=== PATIENT | female | born 1935 | race African-American/Black ===

== ENCOUNTER → 2016-06-09 | Outpatient (CLI) | payer OTHER ==
[~2016-06-09] MED LIST: AMLODIPINE BESYL5 MG PO; ASPIRIN ADULT L81 M1 PO; ASPIRIN81 M1 PO; BACTRIM DS 8001 TA1 PO; CARDIZEM CD300 MG PO; CIPROFLOXACIN500 MG PO; COREG12.5 MG PO; Carafate1 GM PO; DARVOCET N 1001 TAB PO; FLOVENT 110 M110 MCG INH; HYDR12.5C PO; HYDROXYCHLOROQ200 M1 PO; HYDROXYCHLOROQ200 MG PO; KEFLEX500 M1 PO; LIDEX0.05% T; MECLIZINE HCL12.5 MG PO; NALTREXONE50 MG PO; NORCO 5-325 TA1 EACH PO; NORTRIPTYLINE H10 MG PO; PANTOPRAZOLE SO40 MG PO; PERCOCET 325 MG1 TA5 PO; PRILOSEC20 MG PO; PROTONIX40 MG PO; TORADOL10 MG PO; ULTRAM50 MG PO; VIT B; ZANTAC150 MG PO; ZOFRAN ODT4 MG SL
== END | disposition home or self-care (01) ==
LOC: RAD 09:50
DX: N20.0 Calculus of kidney (principal); N21.1 Calculus in urethra

== ENCOUNTER → 2016-07-24 | Outpatient (CLI) | payer OTHER | END | disposition home or self-care (01) | LOC: RAD 11:50 | DX: N20.0 Calculus of kidney (principal); Z96.0 Presence of urogenital implants ==

== ENCOUNTER → 2016-12-01 | Outpatient (CLI) | payer OTHER | END | disposition home or self-care (01) | LOC: RAD 11:21 | DX: Z13.820 Encounter for screening for osteoporosis (principal); E55.9 Vitamin D deficiency, unspecified; R29.890 Loss of height; Z78.0 Asymptomatic menopausal state; Z90.710 Acquired absence of both cervix and uterus ==

== ENCOUNTER 2017-02-22 20:33 | Inpatient (IN) | payer OTHER ==
[~2017-02-22] VITALS: Ht 157.5 cm; Wt 114.8 kg
--- NOTE | ~2017-02-22 | CON ---
[place], [place] REPORT OF CONSULTATION NAME: MILY COLÓN [facility] #: [id number] UNIT #: [id number] ROOM: 406 DOCTOR: SANDRA MUÑIZ MD BIRTHDATE: [birth year] DOS: 02/27/2017 CONSULTATION REQUESTED BY: Hospitalist services. REASON FOR CONSULTATION: Assess the patient's symptoms of persistent shortness of breath. HISTORY OF PRESENT ILLNESS: This is an 81-year-old female patient with a past diagnosed history reported by the patient as COPD, presented to the hospital. The patient has been noted acutely ill for the past few days. The symptoms started in the past 3-4 days. She started with symptoms, nasal congestion with drainage in the throat and also developed progressive increased coughing as well as shortness of breath. The symptoms of body ache noted. The patient has been currently treated for acute exacerbation of COPD with corticosteroids, bronchodilators, and other medications and still reported symptoms of shortness of breath with exertion. She denies symptoms of chest pain, chest tightness at the present time. Denies symptoms of hemoptysis. REVIEW OF SYSTEMS: CONSTITUTIONAL: Fatigue and tiredness noted without symptoms of fever or chills. EYES: Denies any burning, redness, or tenderness. EARS, NOSE, THROAT SYMPTOMS: Denies sore throat, hoarseness, otalgia, postnasal drainage or epistaxis. CARDIOVASCULAR: Denies anginal pain, edema or pain of the lower extremity. GASTROINTESTINAL: Denies dysphagia, nausea, vomiting, diarrhea, abdominal pain, hematemesis, melena or hematochezia. SKIN: Denies any lesions or rashes. CENTRAL NERVOUS SYSTEM: Denied symptoms of diplopia, headache, syncopal episode, tingling sensation of the extremity. PAST MEDICAL HISTORY: 1. The patient was known with history of bronchial asthma, severity unknown. 2. History of macular degeneration. 3. Gastroesophageal reflux. 4. History of essential hypertension. 5. Morbid obesity, BMI of 43. PAST SURGICAL HISTORY: The patient was known with history of: 1. Appendectomy. 2. 3 times. 3. Cholecystectomy. 4. Hysterectomy. SOCIAL HISTORY: The patient is currently , has 2 children. Denies history of alcohol use or illicit drug use. Lifetime nonsmoker. Denies occupation related pulmonary exposure history. FAMILY HISTORY: The patient's father with the patient complication related to the alcoholic liver cirrhosis. The mother at age 8585 years old related [place], [place] REPORT OF CONSULTATION [facility] [id number] UNIT #: [id number] ROOM: [facility] DOCTOR: JATINDER TURK MDSANDRA BIRTHDATE: [birth year] to myocardial infarction. One other brother has been also known with history of lung cancer. HOME MEDICATIONS: The medication from were listed as use of amlodipine, Coreg, hydrochlorothiazide, and Carafate. DRUG ALLERGIES: 1. ____ causing angioedema. 2. PENICILLINS. 3. IODINE. PHYSICAL EXAMINATION: GENERAL: This is 81-year-old -[place] female, currently sitting on the bed without any acute distress in the history of present illness. The patient was not noted without any acute distress. VITAL SIGNS: Height recorded 5 feet 2 inches, weight of 253 pounds, BMI 43. Recorded as a normal temperature. The patient since admission 02/22/2017, respiratory rate 18-20, heart rate 72-64, blood pressure 123/54-130/53, pulse oxygen saturation on room air ranged between 95-98% saturation throughout the admission. HEENT: Head was atraumatic. Eyes: No icterus. NECK: Short and obese. Supple. CARDIOVASCULAR: S1, S2 audible. LUNGS: The patient noted moderate decreased breath sounds, mild to moderate expiratory wheezing noted in the lungs bilaterally. There were no crackles heard. ABDOMEN: Soft, obese without any tenderness. Bowel sounds present. EXTREMITIES: Chronic obesity without any edema. CENTRAL NERVOUS SYSTEM: Cranial nerves 2-12 intact. No focal deficit. MUSCULOSKELETAL: The patient does not show any acute deformities. SKIN: Visible skin showed no lesions or rashes. LABORATORY DATA: CBC 02/22/2017: Normal WBC count and platelet count, hemoglobin 11.3, hematocrit 34.4. Influenza A and B, nasal washing antigen negative on admission. CMP of 02/22/2017 on admission, BUN 19, creatinine 1.52, potassium 3.3. Remaining LFTs normal. PT/INR noted normal 02/23/2017. CBC this morning essentially noted identical to the admission. BMP today, BUN with normal creatinine was noted completely normal today. Glucose 188. Potassium noted decreased at 2.9. The blood culture from the showed no bacterial growth. Influenza A and B, nasal washing antigen on admission noted negative. Chest x-ray, 02/22/2017, the patient noted without any acute abnormalities. IMPRESSION: 1. The patient who has been currently admitted to the hospital noted with ongoing acute exacerbation of bronchial asthma with superimposed acute bronchitis with reduction of the respiratory symptom still noticed symptoms of shortness of breath and wheezing, persistent on examination. I cannot compare ____ wheezing improvement since admission; however, the patient does report reduction of respiratory symptom, but the resolution was described to be incomplete. [place], [place] REPORT OF CONSULTATION NAME: MILY COLÓN UNIT #: [id number] ROOM: 406 DOCTOR: JATINDER TURK MD,SANDRA BIRTHDATE: [birth year] 2. Morbid obesity. 3. Suspected diagnosis of obstructive sleep apnea disorder, current body habitus of the patient was also considered. 4. History of essential hypertension and other medical illnesses as reported. PLAN OF MANAGEMENT: I would not make any changes to the corticosteroids, resolution of the symptom. The patient has been noted gradually as improvement in the bronchial asthma, current dose of corticosteroids would be continued with continuation of bronchodilators. Monitor respiratory status closely. The patient does not seem to take any regular medications respiratory gudino for the long-term management of bronchial asthma will be started on Dulera 200/5 as 2 inhalations b.i.d. Monitor respiratory status closely. The patient will be ordered 6-minute walk test to assess the current shortness of breath severity as well as to assess for any oxygen desaturation. All other supportive therapy, plan of management to be continued. Usual care with additional treatment changes will be made based on the progression of the illness. Thanks for allowing me to participate in the care of this patient. SANDRA TOBIAS MD CM:CONSTR:REPORT OF CONSULTATION 1647 02/28/17 0159 interface
--- NOTE | ~2017-02-22 | PR ---
[place], [place] PROGRESS NOTE NAME: [facility]ILY [facility]N [facility]: [id number] UNIT #: [id number] ROOM: 406 DOCTOR: JATINDER TURK MD,SANDRA BIRTHDATE: [birth year] DOS: 03/01/2017 SUBJECTIVE: She has been showing gradual reduction of respiratory symptoms. Cough has been noted intermittently, but the intensity and frequency has been decreasing and not completely resolved. Shortness of breath occurred with exertion, but gradual reduction described. There were symptoms of chest pain or abdominal pain. OBJECTIVE: VITAL SIGNS: Normal temperature, respiratory rate 18, heart rate 66, blood pressure 124/79-142/77. The pulse oxygen saturation on room air was 100% saturation. HEENT: Shows moderate degree breath, occasional wheezing, no crackles. ABDOMEN: Soft, nontender. Bowel sounds present. EXTREMITIES: The patient was noted without any edema, clubbing or cyanosis. IMPRESSION: 1. The patient with gradual reduction of the respiratory symptom. The patient has been continued with current medical management, resolving acute bronchial asthma exacerbation slowly. 2. Chronic obesity, suspected diagnosis of sleep apnea disorder, clinically require further assessment. PLAN OF TREATMENT: The patient may be considered for home discharge today on oral medication as corticosteroids, tapering dose. The antibiotic use may not be further needed. Home oxygen assessment was also ordered, the patient prior to the discharge to assess the need for any oxygen use at home. SANDRA TOBIAS MD CM:PNTRANS [phone] SANDRA TURK MD 03/01/17 1657 interface
--- NOTE | ~2017-02-22 | PR ---
[place], [place] PROGRESS NOTE NAME: MILY COLÓN [facility] #: [id number] UNIT #: [id number] ROOM: 406 DOCTOR: JATINDER TURK MD,SANDRA BIRTHDATE: [birth year] DOS: 02/28/2017 SUBJECTIVE: The patient has been noted comfortable at this time with sitting on the bed. She does have a cough. The patient was noted [id number] without any sputum expectoration, has not been reported any symptoms of chest pain or hemodynamic instability. OBJECTIVE: VITAL SIGNS: Normal temperature, respiratory rate 20, heart rate of 65-67, blood pressure 132/47-131/54. The pulse oxygen saturation on room air 96% saturation. HEENT: No acute change. NECK: Supple. CARDIOVASCULAR: S1, S2 is audible. LUNGS: The patient noted moderate decreased breath sound without any crackles, mild expiratory wheezing bilaterally. ABDOMEN: Soft and obese. EXTREMITIES: With chronic obesity. LABORATORY DATA: BMP, BUN today 16, creatinine 1.25, potassium 3.2. IMPRESSION: 1. The patient with ongoing acute exacerbation of bronchial asthma and acute bronchitis, still noted with some ongoing symptoms of shortness of breath, cough and wheezing with gradual improvement. 2. Chronic obesity. 3. Suspected obstructive sleep apnea disorder. 4. Hyperglycemia secondary to corticosteroids. PLAN OF MANAGEMENT: Continuation of the current plan of care for the patient at this time as in progress. Monitor respiratory status closely. Continue other supportive plan of care and treatments. SANDRA TOBIAS MD CM:PNTRANS [id number] SANDRA TURK MD 02/28/17 1532 interface
--- NOTE | ~2017-02-22 | EKG ---
[place], [place] ELECTROCARDIOGRAM REPORT NAME: MILY COLÓN UNIT #: [id number] ROOM: [facility] DOCTOR: ESPERANZA CHILEL,CHING BIRTHDATE: [birth year] DOS: 02/22/2017 TIME: 2111. IMPRESSION: 1. Sinus rhythm. 2. Right bundle-branch block. 3. Nonspecific ST-T changes. 4. Baseline artifacts. CHING MATA MD CM:EKGRPT:ELECTROCARDIOGRAM REPORT [id number] 1521 CHING MATA MD
[2017-02-22 20:47] VITALS: BP 164/61
[2017-02-22 21:27] LABS: BASO % 0.4 % (0.0-1.0); EOS # 0.2 10*3/uL (0.0-0.4); EOS % 2.7 % (1.0-4.0); HEMATOCRIT 34.4 % (37.0-47.0); HEMOGLOBIN 11.3 g/dl (12.0-16.0); LYMPH # 1.7 10*3/uL (1.3-4.4); LYMPH % 23.9 % (27.0-41.0); MEAN CELL VOLUME 90.3 fl (81.0-99.0); MEAN CORPUSCULAR HGB 29.7 pg (27.0-31.0); MEAN CORPUSCULAR HGB CONC 32.8 g/dl (33.0-37.0); MEAN PLATELET VOLUME 10.4 fl (9.6-12.3); MONO # 1.1 10*3/uL (0.1-1.0); NEUT # 4.1 10*3/uL (2.3-7.9); NEUT % 57.9 % (47.0-73.0); PLATELET COUNT AUTOMATED 203 10*3/uL (130-400); RED BLOOD COUNT 3.81 10*6/uL (4.10-5.10); RED CELL DISTRI WIDTH 13.2 % (0-14.5); WHITE BLOOD COUNT 7.1 10*3/uL (4.8-10.8)
[2017-02-22 21:44] LABS: ALBUMIN 3.3 gm/dl (3.1-4.5); ALKALINE PHOSPHATASE 100 U/L (45-117); BUN 19 mg/dl (7-24); CHLORIDE 108 mmol/L (98-107); CREATININE 1.52 mg/dL (0.55-1.02); POTASSIUM 3.3 mmol/L (3.5-5.1); SGOT/AST 19 IU/L (3-35); SGPT/ALT 19 U/L (12-78); SODIUM 142 mmol/L (136-145); TOTAL PROTEIN 8.2 gm/dL (6.4-8.2)
[2017-02-22 21:52] LABS: TROPONIN I < 0.015 ng/ml (<0.045)
[2017-02-22 22:45] VITALS: BP 154/78
[2017-02-23] VITALS: BP 154/78
[2017-02-23 07:17] LABS: BASO % 0.2 % (0.0-1.0); HEMOGLOBIN 10.6 g/dl (12.0-16.0); LYMPH # 0.6 10*3/uL (1.3-4.4); LYMPH % 10.4 % (27.0-41.0); MEAN CELL VOLUME 90.4 fl (81.0-99.0); MEAN CORPUSCULAR HGB 29.9 pg (27.0-31.0); MEAN CORPUSCULAR HGB CONC 33.1 g/dl (33.0-37.0); MEAN PLATELET VOLUME 9.9 fl (9.6-12.3); MONO # 0.1 10*3/uL (0.1-1.0); MONO % 1.5 % (3.0-9.0); NEUT # 5.4 10*3/uL (2.3-7.9); NEUT % 87.6 % (47.0-73.0); PLATELET COUNT AUTOMATED 186 10*3/uL (130-400); RED BLOOD COUNT 3.54 10*6/uL (4.10-5.10); RED CELL DISTRI WIDTH 12.8 % (0-14.5); WHITE BLOOD COUNT 6.2 10*3/uL (4.8-10.8)
[2017-02-23 07:57] LABS: INTERNATIONAL NORM RATIO 1.1 (2.0-3.5)
[2017-02-23 08:00] VITALS: BP 172/76
[2017-02-23 08:56] LABS: ALBUMIN 2.9 gm/dl (3.1-4.5); CREATININE 1.29 mg/dL (0.55-1.02); FREE T4 0.94 ng/dl (0.76-1.46); PHOSPHOROUS 2.8 mg/dL (2.5-4.9); POTASSIUM 3.4 mmol/L (3.5-5.1); TOTAL PROTEIN 7.7 gm/dL (6.4-8.2)
[2017-02-23 09:01] LABS: THYROID STIM HORMONE (HS) 0.462 uIU/ml (0.358-4.75)
[2017-02-23 12:00] VITALS: BP 155/59
[2017-02-23 15:51] VITALS: BP 160/70
[2017-02-23 20:00] VITALS: BP 158/66
[2017-02-24] VITALS: BP 143/72
[2017-02-24 08:00] VITALS: BP 176/72
[2017-02-24 08:15] LABS: BASO % 0.1 % (0.0-1.0); HEMATOCRIT 32.8 % (37.0-47.0); HEMOGLOBIN 11.1 g/dl (12.0-16.0); LYMPH # 1.1 10*3/uL (1.3-4.4); LYMPH % 8.6 % (27.0-41.0); MEAN CELL VOLUME 88.6 fl (81.0-99.0); MEAN CORPUSCULAR HGB CONC 33.8 g/dl (33.0-37.0); MEAN PLATELET VOLUME 10.3 fl (9.6-12.3); MONO # 0.7 10*3/uL (0.1-1.0); MONO % 5.1 % (3.0-9.0); NEUT # 11.2 10*3/uL (2.3-7.9); NEUT % 85.7 % (47.0-73.0); PLATELET COUNT AUTOMATED 209 10*3/uL (130-400); RED CELL DISTRI WIDTH 12.9 % (0-14.5); WHITE BLOOD COUNT 13.1 10*3/uL (4.8-10.8)
[2017-02-24 08:36] LABS: CREATININE 1.25 mg/dL (0.55-1.02); PHOSPHOROUS 2.2 mg/dL (2.5-4.9); POTASSIUM 3.4 mmol/L (3.5-5.1)
[2017-02-24 12:00] VITALS: BP 151/68
[2017-02-24 16:00] VITALS: BP 158/61
[2017-02-24 20:00] VITALS: BP 123/48
[2017-02-25] VITALS: BP 140/56
[2017-02-25 06:26] LABS: BASO % 0.1 % (0.0-1.0); HEMOGLOBIN 10.9 g/dl (12.0-16.0); LYMPH # 1.1 10*3/uL (1.3-4.4); LYMPH % 8.8 % (27.0-41.0); MEAN CELL VOLUME 89.1 fl (81.0-99.0); MEAN CORPUSCULAR HGB 30.4 pg (27.0-31.0); MEAN CORPUSCULAR HGB CONC 34.1 g/dl (33.0-37.0); MEAN PLATELET VOLUME 10.1 fl (9.6-12.3); MONO # 0.4 10*3/uL (0.1-1.0); MONO % 3.4 % (3.0-9.0); NEUT # 10.8 10*3/uL (2.3-7.9); NEUT % 86.7 % (47.0-73.0); PLATELET COUNT AUTOMATED 195 10*3/uL (130-400); RED BLOOD COUNT 3.59 10*6/uL (4.10-5.10); WHITE BLOOD COUNT 12.4 10*3/uL (4.8-10.8)
[2017-02-25 07:16] LABS: BUN 15 mg/dl (7-24); CHLORIDE 109 mmol/L (98-107); CREATININE 1.04 mg/dL (0.55-1.02); PHOSPHOROUS 1.5 mg/dL (2.5-4.9); POTASSIUM 2.8 mmol/L (3.5-5.1); SODIUM 143 mmol/L (136-145)
[2017-02-25 08:00] VITALS: BP 150/58
[2017-02-25 12:00] VITALS: BP 138/60
[2017-02-25 16:00] VITALS: BP 145/58
[2017-02-25 20:00] VITALS: BP 130/52
[2017-02-26] VITALS: BP 148/65
[2017-02-26 06:02] LABS: BUN 15 mg/dl (7-24); CHLORIDE 108 mmol/L (98-107); CREATININE 1.01 mg/dL (0.55-1.02); PHOSPHOROUS 2.1 mg/dL (2.5-4.9); POTASSIUM 3.1 mmol/L (3.5-5.1); SODIUM 141 mmol/L (136-145)
[2017-02-26 08:00] VITALS: BP 130/54
[2017-02-26] MEDS ORDERED: VITAMIN D31000 UNI1 PO (09:48)
[2017-02-26 12:00] VITALS: BP 152/64
[2017-02-26 16:00] VITALS: BP 135/56
[2017-02-26 20:00] VITALS: BP 118/50
[2017-02-27] VITALS: BP 131/57
[2017-02-27 04:00] VITALS: BP 153/71
[2017-02-27 06:11] LABS: BASO % 0.1 % (0.0-1.0); HEMATOCRIT 32.4 % (37.0-47.0); HEMOGLOBIN 11.1 g/dl (12.0-16.0); LYMPH % 10.4 % (27.0-41.0); MEAN CELL VOLUME 86.9 fl (81.0-99.0); MEAN CORPUSCULAR HGB 29.8 pg (27.0-31.0); MEAN CORPUSCULAR HGB CONC 34.3 g/dl (33.0-37.0); MEAN PLATELET VOLUME 10.2 fl (9.6-12.3); MONO # 0.6 10*3/uL (0.1-1.0); MONO % 5.7 % (3.0-9.0); PLATELET COUNT AUTOMATED 202 10*3/uL (130-400); RED BLOOD COUNT 3.73 10*6/uL (4.10-5.10); RED CELL DISTRI WIDTH 12.7 % (0-14.5); WHITE BLOOD COUNT 9.8 10*3/uL (4.8-10.8)
[2017-02-27 06:25] LABS: BUN 14 mg/dl (7-24); CHLORIDE 102 mmol/L (98-107); CREATININE 1.02 mg/dL (0.55-1.02); POTASSIUM 2.9 mmol/L (3.5-5.1); SODIUM 140 mmol/L (136-145)
[2017-02-27 08:00] VITALS: BP 152/75
[2017-02-27 12:00] VITALS: BP 148/50
[2017-02-27 16:00] VITALS: BP 123/54
[2017-02-27 20:00] VITALS: BP 154/81
[2017-02-28] VITALS: BP 133/70
[2017-02-28 05:20] VITALS: BP 140/64
[2017-02-28 07:28] LABS: CREATININE 1.25 mg/dL (0.55-1.02); PHOSPHOROUS 2.7 mg/dL (2.5-4.9); POTASSIUM 3.2 mmol/L (3.5-5.1)
[2017-02-28 08:00] VITALS: BP 131/54
[2017-02-28 12:00] VITALS: BP 132/47
[2017-02-28 16:06] VITALS: BP 113/39
[2017-02-28 19:56] VITALS: BP 139/52
[2017-03-01] VITALS: BP 125/55
[2017-03-01 07:36] LABS: CREATININE 1.17 mg/dL (0.55-1.02)
[2017-03-01 08:09] VITALS: BP 142/77
[2017-03-01 11:51] VITALS: BP 124/79
[2017-03-01] MEDS ORDERED: PREDNISONE10 MG PO (12:15)
[2017-03-01] MEDS ORDERED: K-TAB20 MEQ PO (12:43)
== END 2017-03-01 14:17 | disposition home or self-care (01) | DRG 871 ==
LOC: ED 20:33 → 4E 21:58 → EDHOLD 21:58 → 4E 22:35
PROVIDERS: Family Medicine; Internal Medicine Nephrology; Student in an Organized Health Care Education/Training Program
DX: A41.9 Sepsis, unspecified organism (principal); J18.9 Pneumonia, unspecified organism; E11.22 Type 2 diabetes mellitus with diabetic chronic kidney disease; M32.9 Systemic lupus erythematosus, unspecified; E11.65 Type 2 diabetes mellitus with hyperglycemia; J44.0 Chronic obstructive pulmonary disease with (acute) lower respiratory infection; Z68.41 Body mass index [BMI] 40.0-44.9, adult; J44.1 Chronic obstructive pulmonary disease with (acute) exacerbation; J45.901 Unspecified asthma with (acute) exacerbation; D64.9 Anemia, unspecified; E66.01 Morbid (severe) obesity due to excess calories; N18.3 Chronic kidney disease, stage 3 (moderate); E87.6 Hypokalemia; I25.10 Atherosclerotic heart disease of native coronary artery without angina pectoris; J20.9 Acute bronchitis, unspecified; G47.33 Obstructive sleep apnea (adult) (pediatric); I12.9 Hypertensive chronic kidney disease with stage 1 through stage 4 chronic kidney disease, or unspecified chronic kidney disease; M54.9 Dorsalgia, unspecified; G89.29 Other chronic pain; Z53.29 Procedure and treatment not carried out because of patient's decision for other reasons; T38.0X5A Adverse effect of glucocorticoids and synthetic analogues, initial encounter; K21.9 Gastro-esophageal reflux disease without esophagitis; Z90.49 Acquired absence of other specified parts of digestive tract; Z98.891 History of uterine scar from previous surgery; Z90.710 Acquired absence of both cervix and uterus; Z80.1 Family history of malignant neoplasm of trachea, bronchus and lung; Z83.79 Family history of other diseases of the digestive system; Z82.49 Family history of ischemic heart disease and other diseases of the circulatory system; Z81.1 Family history of alcohol abuse and dependence; Z88.8 Allergy status to other drugs, medicaments and biological substances; Z88.0 Allergy status to penicillin; Z91.013 Allergy to seafood; Y92.89 Other specified places as the place of occurrence of the external cause; Z79.899 Other long term (current) drug therapy

== ENCOUNTER → 2017-07-06 | Outpatient (CLI) | payer OTHER ==
[~2017-07-06] MED LIST changes: +K-TAB20 MEQ PO; +PREDNISONE10 MG PO; +VITAMIN D31000 UNI1 PO
[2017-07-06 11:07] LABS: BASO % 0.4 % (0.0-1.0); EOS # 0.1 10*3/uL (0.0-0.4); EOS % 1.2 % (1.0-4.0); HEMATOCRIT 34.3 % (37.0-47.0); HEMOGLOBIN 10.9 g/dl (12.0-16.0); LYMPH % 21.7 % (27.0-41.0); MEAN CELL VOLUME 92.5 fl (81.0-99.0); MEAN CORPUSCULAR HGB 29.4 pg (27.0-31.0); MEAN CORPUSCULAR HGB CONC 31.8 g/dl (33.0-37.0); MEAN PLATELET VOLUME 9.5 fl (9.6-12.3); MONO # 0.8 10*3/uL (0.1-1.0); MONO % 8.8 % (3.0-9.0); NEUT # 6.2 10*3/uL (2.3-7.9); NEUT % 67.6 % (47.0-73.0); PLATELET COUNT AUTOMATED 241 10*3/uL (130-400); RED BLOOD COUNT 3.71 10*6/uL (4.10-5.10); RED CELL DISTRI WIDTH 12.8 % (0-14.5); WHITE BLOOD COUNT 9.2 10*3/uL (4.8-10.8)
[2017-07-06 11:35] LABS: ALBUMIN 3.4 gm/dl (3.1-4.5); CREATININE 1.26 mg/dL (0.55-1.02); POTASSIUM 3.5 mmol/L (3.5-5.1)
== END | disposition home or self-care (01) ==
LOC: LAB 10:29
PROVIDERS: Nurse Practitioner Family
DX: E78.4 Other hyperlipidemia (principal); I10 Essential (primary) hypertension

== ENCOUNTER → 2017-07-21 | Outpatient (CLI) | payer OTHER | END | disposition home or self-care (01) | LOC: LAB 13:40 | DX: I10 Essential (primary) hypertension (principal); R00.1 Bradycardia, unspecified ==

== ENCOUNTER 2017-09-23 01:31 | Emergency (ER) | payer OTHER ==
[~2017-09-23] VITALS: Ht 157.4 cm; Wt 100.7 kg
[2017-09-23 02:23] LABS: BASO % 0.4 % (0.0-1.0); EOS % 0.4 % (1.0-4.0); HEMATOCRIT 33.1 % (37.0-47.0); HEMOGLOBIN 10.9 g/dl (12.0-16.0); LYMPH # 1.3 10*3/uL (1.3-4.4); LYMPH % 12.6 % (27.0-41.0); MEAN CELL VOLUME 89.5 fl (81.0-99.0); MEAN CORPUSCULAR HGB 29.5 pg (27.0-31.0); MEAN CORPUSCULAR HGB CONC 32.9 g/dl (33.0-37.0); MEAN PLATELET VOLUME 9.8 fl (9.6-12.3); MONO # 0.6 10*3/uL (0.1-1.0); MONO % 5.8 % (3.0-9.0); NEUT # 8.4 10*3/uL (2.3-7.9); NEUT % 80.4 % (47.0-73.0); PLATELET COUNT AUTOMATED 250 10*3/uL (130-400); RED CELL DISTRI WIDTH 13.2 % (0-14.5); WHITE BLOOD COUNT 10.4 10*3/uL (4.8-10.8)
[2017-09-23 02:36] LABS: ALBUMIN 3.4 gm/dl (3.1-4.5); CREATININE 1.24 mg/dL (0.55-1.02)
[2017-09-23 03:38] LABS: BILIRUBIN NEGATIVE (NEGATIVE); BLOOD TRACE-INTACT (NEGATIVE); CLARITY CLEAR (CLEAR); COLOR YELLOW (YELLOW); GLUCOSE NEGATIVE (NEGATIVE); KETONE NEGATIVE (NEGATIVE); LEUKO ESTERASE 1+ (NEGATIVE); NITRITE NEGATIVE (NEGATIVE); SPECIFIC GRAVITY 1.025 (1.005-1.030); UROBILINOGEN 0.2 E.U./dl (0.2-1.0)
[2017-09-23 03:45] LABS: BACTERIA TRACE; EPITHELIAL CELLS 0-2
[2017-09-23 12:03] VITALS: BP 157/62
== END 2017-09-23 13:54 | disposition short-term general hospital (02) ==
LOC: ED 01:31
PROVIDERS: Emergency Medicine
DX: K56.609 Unspecified intestinal obstruction, unspecified as to partial versus complete obstruction (principal); K43.9 Ventral hernia without obstruction or gangrene; J45.909 Unspecified asthma, uncomplicated; J44.9 Chronic obstructive pulmonary disease, unspecified; I12.9 Hypertensive chronic kidney disease with stage 1 through stage 4 chronic kidney disease, or unspecified chronic kidney disease; E11.22 Type 2 diabetes mellitus with diabetic chronic kidney disease; N18.3 Chronic kidney disease, stage 3 (moderate); I25.10 Atherosclerotic heart disease of native coronary artery without angina pectoris; E66.01 Morbid (severe) obesity due to excess calories; Z88.8 Allergy status to other drugs, medicaments and biological substances; Z88.0 Allergy status to penicillin; Z91.013 Allergy to seafood; Z68.42 Body mass index [BMI] 45.0-49.9, adult

== ENCOUNTER → 2018-01-16 | Outpatient (CLI) | payer OTHER ==
[2018-01-16 13:30] LABS: BILIRUBIN NEGATIVE (NEGATIVE); BLOOD TRACE-INTACT (NEGATIVE); CLARITY CLOUDY (CLEAR); COLOR YELLOW (YELLOW); GLUCOSE NEGATIVE (NEGATIVE); KETONE NEGATIVE (NEGATIVE); LEUKO ESTERASE 1+ (NEGATIVE); NITRITE POSITIVE (NEGATIVE); PH 5.5 (5.0-9.0); SPECIFIC GRAVITY 1.025 (1.005-1.030); UROBILINOGEN 0.2 E.U./dl (0.2-1.0)
[2018-01-16 14:01] LABS: BACTERIA 3+; EPITHELIAL CELLS 20-30; WBC TNTC wbc/hpf (0-5)
== END | disposition home or self-care (01) ==
LOC: LAB 12:50
PROVIDERS: Nurse Practitioner Family
DX: R30.0 Dysuria (principal)

== ENCOUNTER → 2018-04-26 | Outpatient (CLI) | payer OTHER ==
[2018-04-26 10:27] LABS: BILIRUBIN NEGATIVE (NEGATIVE); BLOOD NEGATIVE (NEGATIVE); CLARITY CLOUDY (CLEAR); COLOR YELLOW (YELLOW); GLUCOSE NEGATIVE (NEGATIVE); KETONE TRACE (NEGATIVE); LEUKO ESTERASE TRACE (NEGATIVE); NITRITE NEGATIVE (NEGATIVE); PH 5.5 (5.0-9.0); SPECIFIC GRAVITY 1.025 (1.005-1.030); UROBILINOGEN 0.2 E.U./dl (0.2-1.0)
[2018-04-26 10:56] LABS: BACTERIA 2+; WBC 51-100 wbc/hpf (0-5)
== END | disposition home or self-care (01) ==
LOC: LAB 10:00
PROVIDERS: Nurse Practitioner Family
DX: R30.0 Dysuria (principal)

== ENCOUNTER 2018-06-16 11:39 | Emergency (ER) | payer OTHER ==
[~2018-06-16] VITALS: Ht 157.4 cm; Wt 96.2 kg
--- NOTE | ~2018-06-16 | EKG ---
[place], [place] ELECTROCARDIOGRAM REPORT NAME: MILY COLÓN UNIT #: [id number] ROOM: DOCTOR: EPIPHANY DRAFT REPORT BIRTHDATE: [birth year] [facility] Test Date: 2018-06-16 Test Time: 12:09:08 Pat Name: MILY COLÓN Department: Room: Gender: F Senior Director [employer]: : 1935 Requested By: CODI LOVING Order Number: [id number] Reading MD: Altaf Lanza MD Measurements Intervals [place] Rate: 50 P: 61 CA: 166 QRS: -76 QRSD: 148 T: 43 QT: 477 QTc: 435 Interpretive Statements Sinus rhythm RBBB and LAFB Electronically Signed On 06-19-2018 7:54:17 PDT by Altaf Lanza MD CM:EKGRPT:ELECTROCARDIOGRAM REPORT [id number] CODI LIU DRAFT REPORT CODI LOVING MD
[2018-06-16 11:40] VITALS: BP 151/147
[2018-06-16 12:33] LABS: BASO % 0.5 % (0.0-1.0); EOS # 0.1 10*3/uL (0.0-0.4); EOS % 1.2 % (1.0-4.0); HEMATOCRIT 33.8 % (37.0-47.0); HEMOGLOBIN 11.3 g/dl (12.0-16.0); LYMPH # 1.9 10*3/uL (1.3-4.4); MEAN CELL VOLUME 92.9 fl (81.0-99.0); MEAN CORPUSCULAR HGB CONC 33.4 g/dl (33.0-37.0); MEAN PLATELET VOLUME 10.1 fl (9.6-12.3); MONO # 0.8 10*3/uL (0.1-1.0); MONO % 9.1 % (3.0-9.0); NEUT # 5.4 10*3/uL (2.3-7.9); PLATELET COUNT AUTOMATED 233 10*3/uL (130-400); RED BLOOD COUNT 3.64 10*6/uL (4.10-5.10); RED CELL DISTRI WIDTH 13.4 % (0-14.5); WHITE BLOOD COUNT 8.3 10*3/uL (4.8-10.8)
[2018-06-16 12:41] LABS: ACT PARTIAL THROMBO TIME 27.8 SECONDS (20.8-31.5)
[2018-06-16 12:45] LABS: BUN 16 mg/dl (7-24); CHLORIDE 113 mmol/L (98-107); CREATININE 1.05 mg/dL (0.55-1.02); POTASSIUM 3.8 mmol/L (3.5-5.1); SODIUM 143 mmol/L (136-145)
== END 2018-06-16 14:05 | disposition home or self-care (01) ==
LOC: ED 11:39
PROVIDERS: Emergency Medicine
DX: S52.502A Unspecified fracture of the lower end of left radius, initial encounter for closed fracture (principal); S00.12XA Contusion of left eyelid and periocular area, initial encounter; R00.1 Bradycardia, unspecified; L98.9 Disorder of the skin and subcutaneous tissue, unspecified; E11.22 Type 2 diabetes mellitus with diabetic chronic kidney disease; I12.9 Hypertensive chronic kidney disease with stage 1 through stage 4 chronic kidney disease, or unspecified chronic kidney disease; N18.3 Chronic kidney disease, stage 3 (moderate); I25.10 Atherosclerotic heart disease of native coronary artery without angina pectoris; I25.2 Old myocardial infarction; E66.9 Obesity, unspecified; J45.909 Unspecified asthma, uncomplicated; G89.29 Other chronic pain; J44.9 Chronic obstructive pulmonary disease, unspecified; Z91.013 Allergy to seafood; Z91.041 Radiographic dye allergy status; Z88.0 Allergy status to penicillin; Z88.8 Allergy status to other drugs, medicaments and biological substances; Z79.899 Other long term (current) drug therapy; Z68.41 Body mass index [BMI] 40.0-44.9, adult; Z90.49 Acquired absence of other specified parts of digestive tract; Z90.710 Acquired absence of both cervix and uterus; W01.0XXA Fall on same level from slipping, tripping and stumbling without subsequent striking against object, initial encounter; Y93.01 Activity, walking, marching and hiking; Y92.89 Other specified places as the place of occurrence of the external cause; Y99.8 Other external cause status

== ENCOUNTER → 2018-06-23 | Outpatient (CLI) | payer OTHER | END | disposition home or self-care (01) | LOC: ORTHO 00:35 | DX: S62.102A Fracture of unspecified carpal bone, left wrist, initial encounter for closed fracture (principal); X58.XXXA Exposure to other specified factors, initial encounter; Y93.89 Activity, other specified; Y92.89 Other specified places as the place of occurrence of the external cause; Y99.8 Other external cause status ==

== ENCOUNTER → 2018-11-28 | Outpatient (CLI) | payer OTHER ==
[2018-11-28 11:47] LABS: BILIRUBIN NEGATIVE (NEGATIVE); BLOOD NEGATIVE (NEGATIVE); CLARITY CLEAR (CLEAR); COLOR YELLOW (YELLOW); GLUCOSE NEGATIVE (NEGATIVE); KETONE NEGATIVE (NEGATIVE); LEUKO ESTERASE NEGATIVE (NEGATIVE); NITRITE NEGATIVE (NEGATIVE); PH 5.5 (5.0-9.0); UROBILINOGEN 0.2 E.U./dl (0.2-1.0)
[2018-11-28 11:50] LABS: BASO % 0.4 % (0.0-1.0); EOS # 0.1 10*3/uL (0.0-0.4); EOS % 1.2 % (1.0-4.0); HEMATOCRIT 34.1 % (37.0-47.0); HEMOGLOBIN 10.9 g/dl (12.0-16.0); LYMPH % 25.6 % (27.0-41.0); MEAN CELL VOLUME 93.4 fl (81.0-99.0); MEAN CORPUSCULAR HGB 29.9 pg (27.0-31.0); MEAN PLATELET VOLUME 10.4 fl (9.6-12.3); MONO # 0.8 10*3/uL (0.1-1.0); MONO % 10.5 % (3.0-9.0); NEUT # 4.8 10*3/uL (2.3-7.9); NEUT % 62.2 % (47.0-73.0); PLATELET COUNT AUTOMATED 218 10*3/uL (130-400); RED BLOOD COUNT 3.65 10*6/uL (4.10-5.10); RED CELL DISTRI WIDTH 13.2 % (0-14.5); WHITE BLOOD COUNT 7.6 10*3/uL (4.8-10.8)
[2018-11-28 11:59] LABS: BACTERIA TRACE
[2018-11-28 12:02] LABS: URINE CREATININE RANDOM 99.1 mg/dL
[2018-11-28 12:19] LABS: ALBUMIN 3.4 gm/dl (3.1-4.5); CREATININE 1.25 mg/dL (0.55-1.02); PHOSPHOROUS 3.5 mg/dL (2.5-4.9); POTASSIUM 3.7 mmol/L (3.5-5.1)
[2018-11-28 12:40] LABS: VITAMIN D, 25-HYDROXY 27.8 ng/mL (30-100)
[2018-11-28 12:41] LABS: FERRITIN 124.2 ng/mL (10.0-291.0); PTH INTACT 33.2 pg/mL (18.5-88.0)
== END | disposition home or self-care (01) ==
LOC: LAB 11:10
PROVIDERS: Internal Medicine Nephrology
DX: I12.9 Hypertensive chronic kidney disease with stage 1 through stage 4 chronic kidney disease, or unspecified chronic kidney disease (principal); N18.3 Chronic kidney disease, stage 3 (moderate); D63.1 Anemia in chronic kidney disease; N25.81 Secondary hyperparathyroidism of renal origin; Z79.899 Other long term (current) drug therapy

== ENCOUNTER 2019-01-18 14:17 | Inpatient (IN) | payer OTHER ==
[~2019-01-18] VITALS: Ht 157.4 cm; Wt 93.2 kg
[2019-01-18 14:18] VITALS: BP 151/54
[2019-01-18 14:44] LABS: BASO % 0.4 % (0.0-1.0); EOS # 0.1 10*3/uL (0.0-0.4); EOS % 1.2 % (1.0-4.0); HEMATOCRIT 33.2 % (37.0-47.0); HEMOGLOBIN 10.9 g/dl (12.0-16.0); LYMPH # 2.5 10*3/uL (1.3-4.4); MEAN CELL VOLUME 93.5 fl (81.0-99.0); MEAN CORPUSCULAR HGB 30.7 pg (27.0-31.0); MEAN CORPUSCULAR HGB CONC 32.8 g/dl (33.0-37.0); MEAN PLATELET VOLUME 9.9 fl (9.6-12.3); MONO # 0.8 10*3/uL (0.1-1.0); MONO % 9.7 % (3.0-9.0); NEUT # 4.9 10*3/uL (2.3-7.9); NEUT % 58.5 % (47.0-73.0); PLATELET COUNT AUTOMATED 205 10*3/uL (130-400); RED BLOOD COUNT 3.55 10*6/uL (4.10-5.10); RED CELL DISTRI WIDTH 12.5 % (0-14.5); WHITE BLOOD COUNT 8.4 10*3/uL (4.8-10.8)
[2019-01-18 15:04] LABS: ALKALINE PHOSPHATASE 57 U/L (45-117); BUN 17 mg/dl (7-24); CHLORIDE 111 mmol/L (98-107); CREATININE 1.12 mg/dL (0.55-1.02); POTASSIUM 3.3 mmol/L (3.5-5.1); SGOT/AST 17 IU/L (3-35); SGPT/ALT 16 U/L (12-78); SODIUM 142 mmol/L (136-145); TOTAL PROTEIN 7.1 gm/dL (6.4-8.2)
[2019-01-18 15:06] LABS: TROPONIN I < 0.015 ng/ml (<0.045)
[2019-01-18 15:11] LABS: ACT PARTIAL THROMBO TIME 29.7 SECONDS (20.0-32.1)
[2019-01-18 15:35] VITALS: BP 124/53
[2019-01-18 15:59] VITALS: BP 117/52
--- NOTE | 2019-01-18 16:00 | NUR ---
PT HR REMAINS IN THE 40'S. PT REPORTS SLIGHT DIZZINESS AT TIMES.
--- NOTE | 2019-01-18 16:35 | NUR ---
PT UP TO THE BATHROOM WITH EMERGENCY MANAGEMENT DIRECTOR, STATES SHE WAS DIZZY WITH ACTIVIY. PT WAS ABLE AMBULATE WITH 1 ASSIST.
[2019-01-18 17:30] VITALS: BP 118/62
[2019-01-18 18:13] VITALS: BP 113/65
[2019-01-18] MEDS ORDERED: LIPITOR10 MG PO (18:32)
[2019-01-18] MEDS ORDERED: CENTRUM SILVER1 EAC1 PO (18:33)
[2019-01-18] MEDS ORDERED: VITAMIN B1250 MCG PO (18:34)
--- NOTE | 2019-01-18 19:02 | NUR ---
ANSWERING SERVICE WAS NOTIFIED OF DR. MANTILLA CONSULT. RESPONSE OF NOTIFICATION WAS SPOKE WITH DARREN STATES SHE WILL CALL THE PHYSICAN. JULES BLANCO
--- NOTE | 2019-01-18 19:07 | NUR ---
Spoke with Dr. Lanza states to decreased pt home dose of coreg from 12.5 mg bid to 3.125 mg bid. States to order echo if not done in last 6 months.
[2019-01-18 20:00] VITALS: BP 126/52
--- NOTE | 2019-01-18 20:09 | NUR ---
NOTIFIED RESIDENT THAT PATIENTS MED REC IS UP TO DATE
--- NOTE | 2019-01-18 23:36 | NUR ---
TYLENOL GIVEN FOR C/O HEADACHE RATED 9/10. CALL LIGHT WITHIN REAACH. SIDE RAILS X2.
[2019-01-19] VITALS: BP 121/35
[2019-01-19 00:25] LABS: BILIRUBIN NEGATIVE (NEGATIVE); BLOOD NEGATIVE (NEGATIVE); CLARITY CLEAR (CLEAR); COLOR YELLOW (YELLOW); GLUCOSE NEGATIVE (NEGATIVE); KETONE NEGATIVE (NEGATIVE); LEUKO ESTERASE NEGATIVE (NEGATIVE); NITRITE NEGATIVE (NEGATIVE); PH 5.5 (5.0-9.0); SPECIFIC GRAVITY 1.015 (1.005-1.030); UROBILINOGEN 0.2 E.U./dl (0.2-1.0)
[2019-01-19 00:35] LABS: BACTERIA TRACE; RBC 0-2 rbc/hpf (0-2)
--- NOTE | 2019-01-19 04:13 | NUR ---
PATIENT HR GERBER DOWN TO 38. DR NOTIFIED/STRIP ON CHART
[2019-01-19 08:00] VITALS: BP 122/44
--- NOTE | 2019-01-19 08:48 | NUR ---
PATIENT COMFORTABLE, APPEARS TO HAVE NO DISCOMFORT AT THIS TIME VÍCTOR BROWN.[facility]
--- NOTE | 2019-01-19 09:00 | NUR ---
Philosophy Instructor in to talk to patient. Patient states lives at home with alone. There are no steps in the home. Physician: abby juarez [facility]acy: [facility] Home health services: none Patient's level of ADLs: INDEPENDENT Patient has working utilities: all working DME: cane Follow-up physician's appointment after d/c: will be made by hospitalist nurse director upon discharge Does patient want to access PORTAL?: no Discharge plan discussed with patient, she states she lives at lone in an apartment and is independent in adls and ambulation she states her sister and her daughter live in the same building, she is her sisters caregiver twice a day, she states she will return home when medically stable. discussed with her VNA and she declines any home needs, case management will follow. MELISSA HOGUE
[2019-01-19 09:01] LABS: CREATININE 1.26 mg/dL (0.55-1.02); POTASSIUM 4.1 mmol/L (3.5-5.1)
[2019-01-19 09:06] LABS: PHOSPHOROUS 3.6 mg/dL (2.5-4.9)
[2019-01-19 09:11] LABS: THYROID STIM HORMONE (HS) 1.33 uIU/ml (0.358-4.75)
--- NOTE | 2019-01-19 10:00 | NUR ---
PATIENT LAYING COMFORTABLE IN BED WATCHING TV, NO COMPLAINTS OF CHEST PAIN AT THIS TIME VÍCTOR ECHEVARRIAN.[facility]
--- NOTE | 2019-01-19 10:10 | NUR ---
DR MANTILLA ROUNDED AND ASSESSED PT. HE SPOKE TO DR CARCAMO AT THIS TIME REGARDING PLAN OF CARE.
--- NOTE | 2019-01-19 11:26 | NUR ---
TYLENOL 650 MG GIVEN FOR C/O H/A,04/09.
[2019-01-19 12:00] VITALS: BP 130/72; BP 132/48
--- NOTE | 2019-01-19 12:00 | NUR ---
PATIENT IS RESTING COMFORTABLY S.GUY SPN.RCC
--- NOTE | 2019-01-19 12:30 | NUR ---
SPOKE TO CAROL LARA BESIDE AND UPDATED HER ON PLAN ORF CARE.
--- NOTE | 2019-01-19 13:30 | NUR ---
PTS LAYING IN BED WATCHING TV, APPEARS COMFORTABLE AT THIS TIME WILL GIVE REPORT TO YARIEL BROWN.[facility]
[2019-01-19 16:00] VITALS: BP 111/59
--- NOTE | 2019-01-19 17:06 | NUR ---
PT AMBULATING HALLWAYS.DENIES SOB.DENIES DIZZINESS. HR 68. DAUGHTER WITH PT. AT THIS TIME. VOICES NO NEEDS.STABLE.WILL CONTINUE TO MONITOR.
[2019-01-19 20:00] VITALS: BP 138/53
[2019-01-20] VITALS: BP 117/42
[2019-01-20 06:32] LABS: BASO % 0.4 % (0.0-1.0); EOS # 0.1 10*3/uL (0.0-0.4); EOS % 1.6 % (1.0-4.0); HEMATOCRIT 32.3 % (37.0-47.0); HEMOGLOBIN 10.4 g/dl (12.0-16.0); LYMPH # 2.5 10*3/uL (1.3-4.4); MEAN CELL VOLUME 93.9 fl (81.0-99.0); MEAN CORPUSCULAR HGB 30.2 pg (27.0-31.0); MEAN CORPUSCULAR HGB CONC 32.2 g/dl (33.0-37.0); MEAN PLATELET VOLUME 10.5 fl (9.6-12.3); MONO # 0.8 10*3/uL (0.1-1.0); MONO % 11.8 % (3.0-9.0); NEUT # 3.6 10*3/uL (2.3-7.9); NEUT % 51.1 % (47.0-73.0); PLATELET COUNT AUTOMATED 205 10*3/uL (130-400); RED BLOOD COUNT 3.44 10*6/uL (4.10-5.10); RED CELL DISTRI WIDTH 12.5 % (0-14.5)
[2019-01-20 06:59] LABS: CREATININE 1.16 mg/dL (0.55-1.02); POTASSIUM 3.6 mmol/L (3.5-5.1)
[2019-01-20 08:00] VITALS: BP 129/71
[2019-01-20 12:00] VITALS: BP 118/41
--- NOTE | 2019-01-20 14:19 | NUR ---
PATIENT DISCHARGE TO HOME.
== END 2019-01-20 15:16 | disposition home or self-care (01) | DRG 309 ==
LOC: ED 14:17 → EDHOLD 16:44 → 4E 16:44
PROVIDERS: Internal Medicine; Nurse Practitioner Family; ADMIT Internal Medicine
DX: R00.1 Bradycardia, unspecified (principal); E44.0 Moderate protein-calorie malnutrition; E66.01 Morbid (severe) obesity due to excess calories; J45.909 Unspecified asthma, uncomplicated; I25.10 Atherosclerotic heart disease of native coronary artery without angina pectoris; G89.29 Other chronic pain; N18.3 Chronic kidney disease, stage 3 (moderate); J44.9 Chronic obstructive pulmonary disease, unspecified; M32.9 Systemic lupus erythematosus, unspecified; M54.9 Dorsalgia, unspecified; E11.22 Type 2 diabetes mellitus with diabetic chronic kidney disease; I12.9 Hypertensive chronic kidney disease with stage 1 through stage 4 chronic kidney disease, or unspecified chronic kidney disease; D64.9 Anemia, unspecified; E87.6 Hypokalemia; E87.8 Other disorders of electrolyte and fluid balance, not elsewhere classified; I25.2 Old myocardial infarction; Z87.01 Personal history of pneumonia (recurrent); Z90.49 Acquired absence of other specified parts of digestive tract; Z88.0 Allergy status to penicillin; Z88.8 Allergy status to other drugs, medicaments and biological substances; Z91.041 Radiographic dye allergy status; Z91.013 Allergy to seafood; Z79.899 Other long term (current) drug therapy; Z90.710 Acquired absence of both cervix and uterus; Z98.891 History of uterine scar from previous surgery; Z82.49 Family history of ischemic heart disease and other diseases of the circulatory system; Z80.1 Family history of malignant neoplasm of trachea, bronchus and lung; Z81.1 Family history of alcohol abuse and dependence; Z83.79 Family history of other diseases of the digestive system; Z68.37 Body mass index [BMI] 37.0-37.9, adult

== ENCOUNTER → 2019-02-06 | Outpatient (CLI) | payer OTHER ==
[~2019-02-06] MED LIST changes: +CENTRUM SILVER1 EAC1 PO; +LIPITOR10 MG PO; +VITAMIN B1250 MCG PO
--- NOTE | 2019-02-06 07:44 | NUR ---
INFORMED CONSENT SIGNED FOR LEXISCAN STRESS TEST WITH DR. MANTILLA. RESTING EKG SINUS BRADYCARDIA WITH RBBB, HR 49, 152/70. PULSE OX 100% AND LUNGS CLEAR BILATERALLY. COMPLETED ONE MINUTE OF LEXISCAN PROTOCOL RECEIVING LEXISCAN 0.4MG OVER 10 SECONDS. OCCASIONAL PVC NOTED WITH NO ST CHANGES. PT C/O WEIRD FEELING. LAST RECOVERY HR 77, BP 130/52. WAITING NUCLEAR SCANNING IN STABLE CONDITION.
== END | disposition home or self-care (01) ==
LOC: CARD 00:34
DX: I20.9 Angina pectoris, unspecified (principal)

== ENCOUNTER → 2019-09-19 | Outpatient (CLI) | payer MEDICARE | END | disposition home or self-care (01) | LOC: COVID19 02:57 | DX: J44.9 Chronic obstructive pulmonary disease, unspecified (principal); Z20.828 Contact with and (suspected) exposure to other viral communicable diseases ==

== ENCOUNTER → 2019-12-26 | Outpatient (CLI) | payer OTHER ==
[2019-12-26 14:41] LABS: BASO % 0.4 % (0.0-1.0); EOS # 0.1 10*3/uL (0.0-0.4); EOS % 0.7 % (1.0-4.0); HEMATOCRIT 39.9 % (37.0-47.0); LYMPH % 30.1 % (27.0-41.0); MEAN CELL VOLUME 93.4 fl (81.0-99.0); MEAN CORPUSCULAR HGB 29.3 pg (27.0-31.0); MEAN CORPUSCULAR HGB CONC 31.3 g/dl (33.0-37.0); MEAN PLATELET VOLUME 10.1 fl (9.6-12.3); MONO # 0.8 10*3/uL (0.1-1.0); MONO % 7.9 % (3.0-9.0); NEUT % 60.7 % (47.0-73.0); PLATELET COUNT AUTOMATED 240 10*3/uL (130-400); RED BLOOD COUNT 4.27 10*6/uL (4.10-5.10); RED CELL DISTRI WIDTH 12.5 % (0-14.5); WHITE BLOOD COUNT 9.8 10*3/uL (4.8-10.8)
[2019-12-26 14:43] LABS: BILIRUBIN Negative (Negative); BLOOD Negative (Negative); CLARITY Clear (Clear); COLOR Yellow (Yellow); GLUCOSE Negative (Negative); KETONE Negative (Negative); LEUKO ESTERASE 2+ (Negative); NITRITE Negative (Negative); UROBILINOGEN 0.2 E.U./dl (0.0-1.0)
[2019-12-26 15:09] LABS: ALBUMIN 3.6 gm/dl (3.1-4.5); CREATININE 1.5 mg/dL (0.55-1.02); POTASSIUM 3.3 mmol/L (3.5-5.1)
[2019-12-26 15:30] LABS: BACTERIA 1+; WBC 21-30 wbc/hpf (0-5)
[2019-12-26 16:19] LABS: FERRITIN 69.3 ng/mL (10.0-291.0); VITAMIN D, 25-HYDROXY 35.1 ng/mL (30-100)
== END | disposition home or self-care (01) ==
LOC: LAB 14:12
PROVIDERS: ATTEND Internal Medicine Nephrology
DX: N18.30 Chronic kidney disease, stage 3 unspecified (principal); N25.81 Secondary hyperparathyroidism of renal origin; D63.1 Anemia in chronic kidney disease

== ENCOUNTER → 2020-04-08 | Outpatient (CLI) | payer OTHER ==
[2020-04-08 10:45] LABS: BASO % 0.5 % (0.0-1.0); EOS # 0.1 10*3/uL (0.0-0.4); EOS % 0.9 % (1.0-4.0); HEMATOCRIT 37.2 % (37.0-47.0); LYMPH # 1.8 10*3/uL (1.3-4.4); LYMPH % 22.8 % (27.0-41.0); MEAN CELL VOLUME 92.5 fl (81.0-99.0); MEAN CORPUSCULAR HGB 29.9 pg (27.0-31.0); MEAN CORPUSCULAR HGB CONC 32.3 g/dl (33.0-37.0); MEAN PLATELET VOLUME 10.1 fl (9.6-12.3); MONO # 0.7 10*3/uL (0.1-1.0); MONO % 8.8 % (3.0-9.0); NEUT # 5.3 10*3/uL (2.3-7.9); NEUT % 66.6 % (47.0-73.0); PLATELET COUNT AUTOMATED 254 10*3/uL (130-400); RED BLOOD COUNT 4.02 10*6/uL (4.10-5.10)
[2020-04-08 11:19] LABS: ALBUMIN 3.4 gm/dl (3.1-4.5); CREATININE 1.38 mg/dL (0.55-1.02); POTASSIUM 3.4 mmol/L (3.5-5.1)
[2020-04-08 11:26] LABS: THYROID STIM HORMONE (HS) 1.59 uIU/ml (0.358-4.75)
== END | disposition home or self-care (01) ==
LOC: LAB 10:21
PROVIDERS: ATTEND Nurse Practitioner Family
DX: I10 Essential (primary) hypertension (principal); E78.2 Mixed hyperlipidemia; E55.9 Vitamin D deficiency, unspecified; R94.4 Abnormal results of kidney function studies

== ENCOUNTER → 2020-04-29 | Outpatient (CLI) | payer OTHER ==
[2020-04-29 10:58] LABS: CREATININE 1.52 mg/dL (0.55-1.02); POTASSIUM 4.2 mmol/L (3.5-5.1)
== END | disposition home or self-care (01) ==
LOC: LAB 09:56
PROVIDERS: ATTEND Nurse Practitioner Family
DX: I10 Essential (primary) hypertension (principal)

== ENCOUNTER 2020-05-12 10:12 | Observation (INO) | payer OTHER ==
[~2020-05-12] VITALS: Ht 157.4 cm; Wt 109.8 kg
[2020-05-12 10:24] VITALS: BP 221/96
[2020-05-12 10:43] LABS: BASO % 0.4 % (0.0-1.0); EOS # 0.1 10*3/uL (0.0-0.4); EOS % 1.1 % (1.0-4.0); HEMATOCRIT 35.4 % (37.0-47.0); LYMPH # 1.9 10*3/uL (1.3-4.4); MEAN CELL VOLUME 93.2 fl (81.0-99.0); MEAN CORPUSCULAR HGB 30.3 pg (27.0-31.0); MEAN CORPUSCULAR HGB CONC 32.5 g/dl (33.0-37.0); MEAN PLATELET VOLUME 9.9 fl (9.6-12.3); MONO # 0.8 10*3/uL (0.1-1.0); MONO % 9.3 % (3.0-9.0); NEUT # 5.2 10*3/uL (2.3-7.9); PLATELET COUNT AUTOMATED 223 10*3/uL (130-400); RED CELL DISTRI WIDTH 13.1 % (0-14.5)
[2020-05-12 10:54] LABS: ACT PARTIAL THROMBO TIME 29.8 SECONDS (20.0-32.1)
[2020-05-12 10:59] LABS: ALBUMIN 3.2 gm/dl (3.1-4.5); ALKALINE PHOSPHATASE 79 U/L (45-117); BUN 20 mg/dl (7-24); CHLORIDE 114 mmol/L (98-107); CREATININE 1.22 mg/dL (0.55-1.02); POTASSIUM 3.9 mmol/L (3.5-5.1); SGOT/AST 13 IU/L (3-35); SGPT/ALT 17 U/L (12-78); SODIUM 144 mmol/L (136-145); TOTAL PROTEIN 7.9 gm/dL (6.4-8.2)
[2020-05-12 11:00] VITALS: BP 184/98
[2020-05-12 11:00] LABS: LIPASE 99 U/L (73-393)
[2020-05-12 11:08] LABS: TROPONIN I < 0.015 ng/ml (<0.045)
[2020-05-12 12:06] LABS: BILIRUBIN Negative (Negative); BLOOD Negative (Negative); CLARITY Clear (Clear); COLOR Yellow (Yellow); GLUCOSE Negative (Negative); KETONE Negative (Negative); NITRITE Negative (Negative); SPECIFIC GRAVITY 1.015 (1.001-1.030); UROBILINOGEN 0.2 E.U./dl (0.0-1.0)
[2020-05-12 12:19] LABS: LEUKO ESTERASE Negative (Negative)
[2020-05-12 12:22] LABS: BACTERIA TRACE
[2020-05-12 15:14] VITALS: BP 182/53
[2020-05-12 20:00] VITALS: BP 153/61
[2020-05-13] VITALS (7 sets, daily range): BP systolic 134–178; BP diastolic 56–103
[2020-05-13 06:22] LABS: BASO % 0.4 % (0.0-1.0); EOS # 0.2 10*3/uL (0.0-0.4); EOS % 1.9 % (1.0-4.0); HEMATOCRIT 38.2 % (37.0-47.0); LYMPH # 2.8 10*3/uL (1.3-4.4); LYMPH % 30.5 % (27.0-41.0); MEAN CELL VOLUME 93.4 fl (81.0-99.0); MEAN CORPUSCULAR HGB 29.6 pg (27.0-31.0); MEAN CORPUSCULAR HGB CONC 31.7 g/dl (33.0-37.0); MEAN PLATELET VOLUME 10.2 fl (9.6-12.3); MONO # 0.8 10*3/uL (0.1-1.0); MONO % 8.2 % (3.0-9.0); NEUT # 5.4 10*3/uL (2.3-7.9); NEUT % 58.8 % (47.0-73.0); PLATELET COUNT AUTOMATED 246 10*3/uL (130-400); RED BLOOD COUNT 4.09 10*6/uL (4.10-5.10); RED CELL DISTRI WIDTH 12.8 % (0-14.5); WHITE BLOOD COUNT 9.3 10*3/uL (4.8-10.8)
[2020-05-13 06:36] LABS: ALBUMIN 3.3 gm/dl (3.1-4.5); CREATININE 1.28 mg/dL (0.55-1.02); POTASSIUM 3.8 mmol/L (3.5-5.1); TOTAL PROTEIN 8.3 gm/dL (6.4-8.2)
[2020-05-13 07:27] LABS: VITAMIN D, 25-HYDROXY 35.6 ng/mL (30-100)
[2020-05-14] VITALS: BP 178/80
[2020-05-14 02:00] VITALS: BP 164/82
[2020-05-14 07:49] VITALS: BP 170/86
[2020-05-14] MEDS ORDERED: AMLODIPINE BESYL5 MG PO (08:31)
== END 2020-05-14 11:40 | disposition home or self-care (01) ==
LOC: ED 10:12 → EDHOLD 12:28 → 5E 13:20
PROVIDERS: Emergency Medicine; Registered Nurse; ADMIT Internal Medicine; ATTEND Internal Medicine
DX: I16.1 Hypertensive emergency (principal); R07.2 Precordial pain; I12.9 Hypertensive chronic kidney disease with stage 1 through stage 4 chronic kidney disease, or unspecified chronic kidney disease; N18.30 Chronic kidney disease, stage 3 unspecified; R06.00 Dyspnea, unspecified; E44.0 Moderate protein-calorie malnutrition; E87.8 Other disorders of electrolyte and fluid balance, not elsewhere classified; I25.10 Atherosclerotic heart disease of native coronary artery without angina pectoris; E66.01 Morbid (severe) obesity due to excess calories; Z68.41 Body mass index [BMI] 40.0-44.9, adult; J45.909 Unspecified asthma, uncomplicated; E87.6 Hypokalemia; M54.9 Dorsalgia, unspecified; G89.29 Other chronic pain; Z90.49 Acquired absence of other specified parts of digestive tract; Z90.710 Acquired absence of both cervix and uterus; Z88.0 Allergy status to penicillin; Z91.013 Allergy to seafood; Z91.09 Other allergy status, other than to drugs and biological substances

== ENCOUNTER → 2020-10-13 | Outpatient (CLI) | payer OTHER ==
[2020-10-13 11:52] LABS: ALBUMIN 3.4 gm/dl (3.1-4.5); CREATININE 1.29 mg/dL (0.55-1.02); POTASSIUM 3.5 mmol/L (3.5-5.1); TOTAL PROTEIN 8.1 gm/dL (6.4-8.2)
== END | disposition home or self-care (01) ==
LOC: LAB 10:57
PROVIDERS: ATTEND Nurse Practitioner Family
DX: I10 Essential (primary) hypertension (principal); E78.2 Mixed hyperlipidemia

== ENCOUNTER → 2021-01-13 | Outpatient (CLI) | payer OTHER ==
[2021-01-13 09:40] LABS: CREATININE 1.39 mg/dL (0.55-1.02)
== END | disposition home or self-care (01) ==
LOC: LAB 09:05 → CT 10:00
PROVIDERS: ATTEND Surgery
DX: K42.9 Umbilical hernia without obstruction or gangrene (principal); N20.0 Calculus of kidney; K57.30 Diverticulosis of large intestine without perforation or abscess without bleeding; K76.0 Fatty (change of) liver, not elsewhere classified; N28.89 Other specified disorders of kidney and ureter

== ENCOUNTER → 2021-02-02 | Outpatient (CLI) | payer OTHER ==
[2021-02-02 10:49] LABS: IRON 71 ug/dL (50-170); TOTAL IRON BINDING CAPACITY 308 ug/dl (250-450)
[2021-02-02 11:23] LABS: FERRITIN 136.3 ng/mL (10.0-291.0)
== END | disposition home or self-care (01) ==
LOC: LAB 09:47
PROVIDERS: ATTEND Nurse Practitioner Family
DX: R79.9 Abnormal finding of blood chemistry, unspecified (principal); D50.9 Iron deficiency anemia, unspecified

== ENCOUNTER → 2021-02-09 | Outpatient (CLI) | payer OTHER | END | disposition home or self-care (01) | LOC: CARD 10:16 | PROVIDERS: ATTEND Internal Medicine Cardiovascular Disease | DX: R00.1 Bradycardia, unspecified (principal); R00.0 Tachycardia, unspecified; I05.8 Other rheumatic mitral valve diseases ==

== ENCOUNTER 2021-10-05 17:10 | Emergency (ER) | payer OTHER ==
[2021-10-05 17:34] LABS: BASO % 0.3 % (0.0-1.0); EOS # 0.1 10*3/uL (0.0-0.4); EOS % 1.1 % (1.0-4.0); HEMATOCRIT 33.6 % (37.0-47.0); LYMPH # 3.2 10*3/uL (1.3-4.4); LYMPH % 34.5 % (27.0-41.0); MEAN CELL VOLUME 91.3 fl (81.0-99.0); MEAN CORPUSCULAR HGB 30.4 pg (27.0-31.0); MEAN CORPUSCULAR HGB CONC 33.3 g/dl (33.0-37.0); MEAN PLATELET VOLUME 9.6 fl (9.6-12.3); MONO # 0.8 10*3/uL (0.1-1.0); MONO % 8.5 % (3.0-9.0); NEUT # 5.1 10*3/uL (2.3-7.9); NEUT % 55.5 % (47.0-73.0); PLATELET COUNT AUTOMATED 211 10*3/uL (130-400); RED BLOOD COUNT 3.68 10*6/uL (4.10-5.10); WHITE BLOOD COUNT 9.2 10*3/uL (4.8-10.8)
[2021-10-05 17:44] LABS: ACT PARTIAL THROMBO TIME 29.7 SECONDS (20.0-32.1)
[2021-10-05 17:51] LABS: CREATININE 1.2 mg/dL (0.55-1.02); POTASSIUM 3.6 mmol/L (3.5-5.1); TOTAL PROTEIN 7.6 gm/dL (6.4-8.2)
[2021-10-05 17:52] LABS: CPK 69 U/L (26-192)
[2021-10-05 19:06] VITALS: BP 128/72
== END 2021-10-05 19:55 | disposition home or self-care (01) ==
LOC: ED 17:10
PROVIDERS: Emergency Medicine
DX: B34.9 Viral infection, unspecified (principal); Z20.822 Contact with and (suspected) exposure to COVID-19; R70.0 Elevated erythrocyte sedimentation rate; I25.10 Atherosclerotic heart disease of native coronary artery without angina pectoris; I12.9 Hypertensive chronic kidney disease with stage 1 through stage 4 chronic kidney disease, or unspecified chronic kidney disease; N18.30 Chronic kidney disease, stage 3 unspecified; E66.9 Obesity, unspecified; Z90.710 Acquired absence of both cervix and uterus; Z98.890 Other specified postprocedural states; Z68.42 Body mass index [BMI] 45.0-49.9, adult; Z79.899 Other long term (current) drug therapy; Z88.0 Allergy status to penicillin

== ENCOUNTER 2021-12-31 09:32 | Emergency (ER) | payer OTHER ==
[~2021-12-31] VITALS: Ht 157.4 cm; Wt 96.2 kg
[2021-12-31 09:47] VITALS: BP 170/61
[2021-12-31 10:24] LABS: BASO % 0.5 % (0.0-1.0); EOS # 0.1 10*3/uL (0.0-0.4); EOS % 1.1 % (1.0-4.0); LYMPH # 1.9 10*3/uL (1.3-4.4); LYMPH % 24.2 % (27.0-41.0); MEAN CELL VOLUME 92.3 fl (81.0-99.0); MEAN CORPUSCULAR HGB 30.3 pg (27.0-31.0); MEAN CORPUSCULAR HGB CONC 32.8 g/dl (33.0-37.0); MEAN PLATELET VOLUME 10.1 fl (9.6-12.3); MONO # 0.6 10*3/uL (0.1-1.0); NEUT # 5.2 10*3/uL (2.3-7.9); NEUT % 65.9 % (47.0-73.0); PLATELET COUNT AUTOMATED 239 10*3/uL (130-400); RED CELL DISTRI WIDTH 12.8 % (0-14.5); WHITE BLOOD COUNT 7.9 10*3/uL (4.8-10.8)
[2021-12-31 10:35] LABS: ACT PARTIAL THROMBO TIME 30.2 SECONDS (20.0-32.1)
[2021-12-31 10:59] LABS: CREATININE 1.41 mg/dL (0.55-1.02); POTASSIUM 3.5 mmol/L (3.5-5.1)
[2022-01-01] MEDS ORDERED: ATORVASTATIN CA10 M1 PO (12:11)
[2022-01-04] MEDS ORDERED: MUCINEX ER600 MG PO (11:51)
== END 2021-12-31 12:58 | disposition home or self-care (01) ==
LOC: ED 09:32
PROVIDERS: Emergency Medicine
DX: R53.83 Other fatigue (principal); R53.1 Weakness; R06.02 Shortness of breath; I25.10 Atherosclerotic heart disease of native coronary artery without angina pectoris; I10 Essential (primary) hypertension; Z88.0 Allergy status to penicillin; Z91.013 Allergy to seafood; Z88.8 Allergy status to other drugs, medicaments and biological substances; Z79.899 Other long term (current) drug therapy; Z90.49 Acquired absence of other specified parts of digestive tract; Z98.890 Other specified postprocedural states; Z90.710 Acquired absence of both cervix and uterus

== ENCOUNTER → 2022-01-27 | Outpatient (CLI) | payer OTHER ==
[~2022-01-27] MED LIST changes: +ATORVASTATIN CA10 M1 PO; +MUCINEX ER600 MG PO
== END | disposition home or self-care (01) ==
LOC: CARD 01-20 11:30
PROVIDERS: ATTEND Nurse Practitioner Family
DX: I10 Essential (primary) hypertension (principal); D50.9 Iron deficiency anemia, unspecified; R06.02 Shortness of breath; Z79.899 Other long term (current) drug therapy

== ENCOUNTER → 2022-10-26 | Outpatient (CLI) | payer OTHER ==
[~2022-10-26] MED LIST changes: +ASPIRIN ADULT L81 M2 PO; +ATORVASTATIN CA40 M1 PO
[2022-10-26 12:06] LABS: BASO % 0.5 % (0.0-1.0); EOS # 0.1 10*3/uL (0.0-0.4); EOS % 0.6 % (1.0-4.0); HEMATOCRIT 36.4 % (37.0-47.0); LYMPH % 25.2 % (27.0-41.0); MEAN CELL VOLUME 93.3 fl (81.0-99.0); MEAN CORPUSCULAR HGB 30.3 pg (27.0-31.0); MEAN CORPUSCULAR HGB CONC 32.4 g/dl (33.0-37.0); MEAN PLATELET VOLUME 9.9 fl (9.6-12.3); MONO # 0.7 10*3/uL (0.1-1.0); MONO % 8.7 % (3.0-9.0); NEUT # 5.2 10*3/uL (2.3-7.9); NEUT % 64.8 % (47.0-73.0); PLATELET COUNT AUTOMATED 229 10*3/uL (130-400)
[2022-10-26 12:42] LABS: POTASSIUM 3.9 mmol/L (3.4-5.1)
== END | disposition home or self-care (01) ==
LOC: LAB 11:41
PROVIDERS: ATTEND Nurse Practitioner Family
DX: I12.9 Hypertensive chronic kidney disease with stage 1 through stage 4 chronic kidney disease, or unspecified chronic kidney disease (principal); E78.2 Mixed hyperlipidemia; D50.9 Iron deficiency anemia, unspecified; E55.9 Vitamin D deficiency, unspecified; N18.32 Chronic kidney disease, stage 3b; Z79.899 Other long term (current) drug therapy

== ENCOUNTER → 2022-11-15 | Outpatient (CLI) | payer OTHER | END | disposition home or self-care (01) | LOC: US 00:27 | PROVIDERS: ATTEND Internal Medicine Nephrology | DX: N18.32 Chronic kidney disease, stage 3b (principal); N20.0 Calculus of kidney ==

== ENCOUNTER 2022-12-06 16:07 | Emergency (ER) | payer OTHER ==
[~2022-12-06] VITALS: Wt 96.2 kg
[2022-12-06 16:18] VITALS: BP 148/62
[2022-12-06 16:47] LABS: BASO % 0.3 % (0.0-1.0); EOS # 0.1 10*3/uL (0.0-0.4); EOS % 1.4 % (1.0-4.0); HEMATOCRIT 33.7 % (37.0-47.0); LYMPH # 2.1 10*3/uL (1.3-4.4); LYMPH % 29.9 % (27.0-41.0); MEAN CELL VOLUME 91.6 fl (81.0-99.0); MEAN CORPUSCULAR HGB CONC 33.8 g/dl (33.0-37.0); MEAN PLATELET VOLUME 9.9 fl (9.6-12.3); MONO # 0.7 10*3/uL (0.1-1.0); MONO % 9.1 % (3.0-9.0); NEUT # 4.2 10*3/uL (2.3-7.9); NEUT % 59.2 % (47.0-73.0); PLATELET COUNT AUTOMATED 210 10*3/uL (130-400); RED BLOOD COUNT 3.68 10*6/uL (4.10-5.10); RED CELL DISTRI WIDTH 12.9 % (0-14.5); WHITE BLOOD COUNT 7.1 10*3/uL (4.8-10.8)
[2022-12-06 16:58] LABS: ACT PARTIAL THROMBO TIME 29.9 SECONDS (20.0-32.1)
[2022-12-06 17:09] LABS: POTASSIUM 3.5 mmol/L (3.4-5.1); TOTAL PROTEIN 7.6 gm/dL (6.0-8.0)
[2022-12-06 18:41] LABS: BILIRUBIN Negative (Negative); BLOOD Negative (Negative); CLARITY Clear (Clear); COLOR Yellow (Yellow); GLUCOSE Negative (Negative); KETONE Negative (Negative); LEUKO ESTERASE Trace (Negative); NITRITE Negative (Negative); UROBILINOGEN 0.2 E.U./dl (0.0-1.0)
[2022-12-06 18:55] LABS: BACTERIA 1+; RBC 0-2 rbc/hpf (0-2)
== END 2022-12-06 20:28 | disposition left against medical advice (07) ==
LOC: ED 16:07
PROVIDERS: Nurse Practitioner
DX: I50.9 Heart failure, unspecified (principal); R51.9 Headache, unspecified; R53.1 Weakness; R42 Dizziness and giddiness; I25.2 Old myocardial infarction; I10 Essential (primary) hypertension; I25.10 Atherosclerotic heart disease of native coronary artery without angina pectoris; K21.9 Gastro-esophageal reflux disease without esophagitis; Z88.0 Allergy status to penicillin; Z91.041 Radiographic dye allergy status; Z91.013 Allergy to seafood; Z88.8 Allergy status to other drugs, medicaments and biological substances; Z98.890 Other specified postprocedural states; Z90.49 Acquired absence of other specified parts of digestive tract; Z90.710 Acquired absence of both cervix and uterus

== ENCOUNTER 2023-12-01 18:15 | Inpatient (IN) | payer OTHER ==
[~2023-12-01] VITALS: Ht 152.4 cm; Wt 85.5 kg
[2023-12-01 18:24] VITALS: BP 187/52
[2023-12-01 19:10] LABS: BASO # 0.1 10*3/uL (0.0-0.1); BASO % 0.7 % (0.0-1.0); EOS # 0.2 10*3/uL (0.0-0.4); LYMPH # 2.5 10*3/uL (1.3-4.4); LYMPH % 33.4 % (27.0-41.0); MEAN CORPUSCULAR HGB CONC 31.9 g/dl (33.0-37.0); MEAN PLATELET VOLUME 10.2 fl (9.6-12.3); MONO # 0.8 10*3/uL (0.1-1.0); MONO % 10.6 % (3.0-9.0); NEUT % 53.2 % (47.0-73.0); PLATELET COUNT AUTOMATED 226 10*3/uL (130-400); RED BLOOD COUNT 3.83 10*6/uL (4.10-5.10); RED CELL DISTRI WIDTH 13.2 % (0-14.5); WHITE BLOOD COUNT 7.5 10*3/uL (4.8-10.8)
[2023-12-01 20:03] LABS: TOTAL PROTEIN 7.4 gm/dL (6.0-8.0)
[2023-12-01] MEDS ORDERED: BISACODYL 5 MG TAB PO PRN (20:55)
[2023-12-01] MEDS ORDERED: MORPHINE Sulfate 2 MG/ML SYR IV PRN (20:55)
[2023-12-01] MEDS ORDERED: Ondansetron Hydrochloride 4 MG/2 ML VIAL IV PRN (20:55)
[2023-12-01] MEDS ORDERED: Magnesium Hydroxide 30 ML UDC PO PRN (20:55)
[2023-12-01] MEDS ORDERED: BISACODYL 10 MG SUPP R PRN (20:55)
[2023-12-01] MEDS ORDERED: TEMAZEPAM 15 MG CAP PO PRN (20:55)
[2023-12-01] MEDS ORDERED: Acetaminophen/Hydrocodone 5 MG/325 MG TABLET PO PRN (20:55)
[2023-12-01] MEDS ORDERED: ACETAMINOPHEN 325 MG TAB PO PRN (20:55)
[2023-12-01] MEDS ORDERED: Pantoprazole Sodium 40 MG TAB PO PRN (21:00)
[2023-12-01] MEDS ORDERED: amLODIPine besylate 5 MG TAB PO SCH (21:30)
[2023-12-01 21:41] VITALS: BP 164/72; BP 167/76
[2023-12-02] VITALS (8 sets, daily range): BP systolic 130–175; BP diastolic 51–89
[2023-12-02 06:48] LABS: BASO % 0.5 % (0.0-1.0); EOS # 0.2 10*3/uL (0.0-0.4); EOS % 2.1 % (1.0-4.0); HEMATOCRIT 33.5 % (37.0-47.0); LYMPH # 2.4 10*3/uL (1.3-4.4); LYMPH % 31.5 % (27.0-41.0); MEAN CELL VOLUME 94.1 fl (81.0-99.0); MEAN CORPUSCULAR HGB 29.8 pg (27.0-31.0); MEAN CORPUSCULAR HGB CONC 31.6 g/dl (33.0-37.0); MEAN PLATELET VOLUME 10.1 fl (9.6-12.3); MONO # 0.7 10*3/uL (0.1-1.0); MONO % 9.9 % (3.0-9.0); NEUT # 4.2 10*3/uL (2.3-7.9); NEUT % 55.7 % (47.0-73.0); PLATELET COUNT AUTOMATED 207 10*3/uL (130-400); RED BLOOD COUNT 3.56 10*6/uL (4.10-5.10); RED CELL DISTRI WIDTH 13.1 % (0-14.5); WHITE BLOOD COUNT 7.5 10*3/uL (4.8-10.8)
[2023-12-02 07:25] LABS: FREE T4 0.91 ng/dl (0.89-1.76); POTASSIUM 3.6 mmol/L (3.4-5.1)
[2023-12-02 08:26] LABS: VITAMIN D, 25-HYDROXY 50.9 ng/mL (30-100)
[2023-12-02] MEDS ORDERED: Enoxaparin Sodium 30 MG/0.3 ML SYR SC SCH (10:00)
[2023-12-03] VITALS: BP 121/49
[2023-12-03 06:08] LABS: BASO % 0.4 % (0.0-1.0); EOS # 0.1 10*3/uL (0.0-0.4); EOS % 1.7 % (1.0-4.0); HEMATOCRIT 35.3 % (37.0-47.0); LYMPH # 1.8 10*3/uL (1.3-4.4); MEAN CELL VOLUME 94.1 fl (81.0-99.0); MEAN CORPUSCULAR HGB 29.9 pg (27.0-31.0); MEAN CORPUSCULAR HGB CONC 31.7 g/dl (33.0-37.0); MEAN PLATELET VOLUME 10.3 fl (9.6-12.3); MONO # 0.7 10*3/uL (0.1-1.0); MONO % 9.4 % (3.0-9.0); NEUT # 4.5 10*3/uL (2.3-7.9); NEUT % 63.1 % (47.0-73.0); PLATELET COUNT AUTOMATED 198 10*3/uL (130-400); RED BLOOD COUNT 3.75 10*6/uL (4.10-5.10); RED CELL DISTRI WIDTH 12.9 % (0-14.5); WHITE BLOOD COUNT 7.2 10*3/uL (4.8-10.8)
[2023-12-03 06:26] LABS: POTASSIUM 3.9 mmol/L (3.4-5.1)
[2023-12-03 08:00] VITALS: BP 148/80; BP 171/71
[2023-12-03] MEDS ORDERED: hydrALAZINE hydrochloride 10 MG TAB PO SCH (10:30)
[2023-12-03 10:43] VITALS: BP 164/78
[2023-12-03] MEDS ORDERED: CALCIUM (TUMS) 500MG PO PRN (11:55)
[2023-12-03 12:00] VITALS: BP 123/57
[2023-12-03] MEDS ORDERED: MG-AL HYDROXIDE/SIMETICONE 30 ML UDC PO ONE (15:50)
[2023-12-03] MEDS ORDERED: HYOSCYAMINE SULFATE 0.125 MG TAB SL ONE (15:55)
[2023-12-03 16:00] VITALS: BP 134/53
[2023-12-03] MEDS ORDERED: LORazepam 2 MG/ML VIAL IV ONE (16:10)
[2023-12-03] MEDS ORDERED: Pantoprazole Sodium 20 MG TAB PO ONE (16:10)
[2023-12-03 20:00] VITALS: BP 155/82
[2023-12-04] VITALS: BP 154/66
[2023-12-04 08:00] VITALS: BP 172/71
[2023-12-04 12:00] VITALS: BP 148/68
[2023-12-04 16:00] VITALS: BP 156/65
[2023-12-04 20:00] VITALS: BP 121/66
[2023-12-04] MEDS ORDERED: hydrALAZINE hydrochloride 25 MG TAB PO SCH (22:00)
[2023-12-05] VITALS: BP 161/65
[2023-12-05 08:00] VITALS: BP 153/59
[2023-12-05] MEDS ORDERED: HYDROCHLOROTHIAZIDE 12.5 MG CAP PO SCH (10:00)
[2023-12-05] MEDS ORDERED: HYDR12.5C PO (11:13)
[2023-12-05] MEDS ORDERED: AMLODIPINE BESYL5 MG PO (11:13)
[2023-12-05] MEDS ORDERED: APRESOLINE25 MG PO (11:13)
== END 2023-12-05 12:11 | disposition home or self-care (01) | DRG 74 ==
LOC: ED 18:15 → EDHOLD 20:48 → 4E 12-02 15:21
PROVIDERS: Nurse Practitioner Family; Student in an Organized Health Care Education/Training Program; ADMIT Internal Medicine; ATTEND Internal Medicine
DX: G90.89 Other disorders of autonomic nervous system (principal); I16.1 Hypertensive emergency; E79.89 Other specified disorders of purine and pyrimidine metabolism; N18.32 Chronic kidney disease, stage 3b; D64.9 Anemia, unspecified; E87.8 Other disorders of electrolyte and fluid balance, not elsewhere classified; I25.10 Atherosclerotic heart disease of native coronary artery without angina pectoris; G89.29 Other chronic pain; K21.9 Gastro-esophageal reflux disease without esophagitis; M54.9 Dorsalgia, unspecified; I45.10 Unspecified right bundle-branch block; R00.1 Bradycardia, unspecified; I12.9 Hypertensive chronic kidney disease with stage 1 through stage 4 chronic kidney disease, or unspecified chronic kidney disease; Z90.49 Acquired absence of other specified parts of digestive tract; Z90.710 Acquired absence of both cervix and uterus; Z80.1 Family history of malignant neoplasm of trachea, bronchus and lung; Z81.1 Family history of alcohol abuse and dependence; Z82.49 Family history of ischemic heart disease and other diseases of the circulatory system; Z88.8 Allergy status to other drugs, medicaments and biological substances; Z88.0 Allergy status to penicillin; Z91.013 Allergy to seafood; Z91.041 Radiographic dye allergy status; Z98.891 History of uterine scar from previous surgery; Z91.148 Patient's other noncompliance with medication regimen for other reason; I25.2 Old myocardial infarction

== ENCOUNTER 2023-12-21 16:02 | Observation (INO) | payer OTHER ==
[~2023-12-21] VITALS: Ht 157.4 cm; Wt 81.4 kg
[~2023-12-21 16:02] MED LIST changes: +APRESOLINE25 MG PO
[2023-12-21 16:11] VITALS: BP 137/63
[2023-12-21] MEDS ORDERED: MORPHINE Sulfate 2 MG/ML SYR IV ONE ×2 (16:35→19:55)
[2023-12-21 16:53] LABS: BASO # 0.1 10*3/uL (0.0-0.1); BASO % 0.5 % (0.0-1.0); EOS # 0.1 10*3/uL (0.0-0.4); EOS % 1.2 % (1.0-4.0); HEMATOCRIT 36.8 % (37.0-47.0); LYMPH # 1.8 10*3/uL (1.3-4.4); LYMPH % 18.4 % (27.0-41.0); MEAN CELL VOLUME 92.7 fl (81.0-99.0); MEAN CORPUSCULAR HGB 29.7 pg (27.0-31.0); MEAN CORPUSCULAR HGB CONC 32.1 g/dl (33.0-37.0); MEAN PLATELET VOLUME 9.9 fl (9.6-12.3); MONO # 0.8 10*3/uL (0.1-1.0); MONO % 8.7 % (3.0-9.0); NEUT # 6.7 10*3/uL (2.3-7.9); PLATELET COUNT AUTOMATED 259 10*3/uL (130-400); RED BLOOD COUNT 3.97 10*6/uL (4.10-5.10); RED CELL DISTRI WIDTH 12.6 % (0-14.5); WHITE BLOOD COUNT 9.5 10*3/uL (4.8-10.8)
[2023-12-21 17:20] LABS: POTASSIUM 3.8 mmol/L (3.4-5.1); TOTAL PROTEIN 7.9 gm/dL (6.0-8.0)
[2023-12-21] MEDS ORDERED: ACETAMINOPHEN 325 MG TAB PO PRN (20:25)
[2023-12-21] MEDS ORDERED: Magnesium Hydroxide 30 ML UDC PO PRN (20:25)
[2023-12-21] MEDS ORDERED: Ondansetron Hydrochloride 4 MG/2 ML VIAL IV PRN (20:25)
[2023-12-21 20:30] VITALS: BP 141/64
[2023-12-21] MEDS ORDERED: ASPIRIN 325 MG TAB PO ONE (20:35)
[2023-12-21] MEDS ORDERED: Acetaminophen/Hydrocodone 5 MG/325 MG TABLET PO PRN (20:40)
[2023-12-21] MEDS ORDERED: hydrALAZINE hydrochloride 25 MG TAB PO SCH (22:00)
[2023-12-21] MEDS ORDERED: ATORVASTATIN CALCIUM 40 MG TABLET PO SCH (22:00)
[2023-12-21] MEDS ORDERED: HEPARIN SODIUM 5,000 UNIT/ML VIAL SC SCH (22:00)
[2023-12-21 23:30] VITALS: BP 130/67
[2023-12-22 06:33] LABS: BASO % 0.5 % (0.0-1.0); EOS # 0.1 10*3/uL (0.0-0.4); EOS % 1.6 % (1.0-4.0); LYMPH # 1.4 10*3/uL (1.3-4.4); MEAN CELL VOLUME 93.6 fl (81.0-99.0); MEAN CORPUSCULAR HGB 29.8 pg (27.0-31.0); MEAN CORPUSCULAR HGB CONC 31.8 g/dl (33.0-37.0); MEAN PLATELET VOLUME 10.4 fl (9.6-12.3); MONO # 0.9 10*3/uL (0.1-1.0); MONO % 9.9 % (3.0-9.0); NEUT # 6.2 10*3/uL (2.3-7.9); NEUT % 71.8 % (47.0-73.0); PLATELET COUNT AUTOMATED 270 10*3/uL (130-400); RED BLOOD COUNT 4.06 10*6/uL (4.10-5.10); RED CELL DISTRI WIDTH 12.9 % (0-14.5); WHITE BLOOD COUNT 8.7 10*3/uL (4.8-10.8)
[2023-12-22] MEDS ORDERED: Regadenoson 0.4 MG/5 ML SYR IV ONE (06:52)
[2023-12-22 07:04] LABS: POTASSIUM 3.9 mmol/L (3.4-5.1); TOTAL PROTEIN 7.9 gm/dL (6.0-8.0)
[2023-12-22 08:00] VITALS: BP 129/40
[2023-12-22] MEDS ORDERED: ASPIRIN ENTERIC COATED 81 MG TAB PO SCH (10:00)
[2023-12-22] MEDS ORDERED: amLODIPine besylate 5 MG TAB PO SCH (10:00)
[2023-12-22 12:00] VITALS: BP 138/47
[2023-12-22 15:55] VITALS: BP 117/58
== END 2023-12-22 17:30 | disposition home or self-care (01) ==
LOC: ED 16:02 → EDHOLD 20:06 → 4E 20:06
PROVIDERS: Nurse Practitioner Family; Student in an Organized Health Care Education/Training Program; ADMIT Family Medicine; ATTEND Family Medicine
DX: R07.89 Other chest pain (principal); I25.110 Atherosclerotic heart disease of native coronary artery with unstable angina pectoris; I12.9 Hypertensive chronic kidney disease with stage 1 through stage 4 chronic kidney disease, or unspecified chronic kidney disease; N18.32 Chronic kidney disease, stage 3b; K21.9 Gastro-esophageal reflux disease without esophagitis; I25.82 Chronic total occlusion of coronary artery; M54.50 Low back pain, unspecified; G89.29 Other chronic pain; D63.1 Anemia in chronic kidney disease; R53.1 Weakness; E66.9 Obesity, unspecified; Z68.37 Body mass index [BMI] 37.0-37.9, adult; Z87.19 Personal history of other diseases of the digestive system; Z79.899 Other long term (current) drug therapy

== ENCOUNTER → 2024-01-06 | Outpatient (CLI) | payer OTHER ==
[2024-01-06 11:41] LABS: BASO # 0.1 10*3/uL (0.0-0.1); BASO % 0.5 % (0.0-1.0); EOS # 0.1 10*3/uL (0.0-0.4); EOS % 0.9 % (1.0-4.0); HEMATOCRIT 35.7 % (37.0-47.0); MEAN CELL VOLUME 92.7 fl (81.0-99.0); MEAN CORPUSCULAR HGB 29.6 pg (27.0-31.0); MEAN CORPUSCULAR HGB CONC 31.9 g/dl (33.0-37.0); MEAN PLATELET VOLUME 9.8 fl (9.6-12.3); MONO % 9.1 % (3.0-9.0); NEUT # 7.3 10*3/uL (2.3-7.9); NEUT % 67.1 % (47.0-73.0); PLATELET COUNT AUTOMATED 287 10*3/uL (130-400); RED BLOOD COUNT 3.85 10*6/uL (4.10-5.10); RED CELL DISTRI WIDTH 12.8 % (0-14.5); WHITE BLOOD COUNT 10.8 10*3/uL (4.8-10.8)
[2024-01-06 12:29] LABS: POTASSIUM 3.7 mmol/L (3.4-5.1); TOTAL PROTEIN 8.3 gm/dL (6.0-8.0)
== END | disposition home or self-care (01) ==
LOC: LAB 11:19
PROVIDERS: ATTEND Nurse Practitioner Family
DX: I12.9 Hypertensive chronic kidney disease with stage 1 through stage 4 chronic kidney disease, or unspecified chronic kidney disease (principal); N18.9 Chronic kidney disease, unspecified; R42 Dizziness and giddiness; Z79.899 Other long term (current) drug therapy

== ENCOUNTER → 2024-04-05 | Outpatient (CLI) | payer OTHER ==
[2024-04-05 18:30] LABS: BASO % 0.5 % (0.0-1.0); EOS # 0.1 10*3/uL (0.0-0.4); EOS % 1.1 % (1.0-4.0); HEMATOCRIT 36.3 % (37.0-47.0); MEAN CELL VOLUME 93.3 fl (81.0-99.0); MEAN CORPUSCULAR HGB 30.3 pg (27.0-31.0); MEAN CORPUSCULAR HGB CONC 32.5 g/dl (33.0-37.0); MEAN PLATELET VOLUME 11.4 fl (9.6-12.3); MONO # 0.6 10*3/uL (0.1-1.0); MONO % 7.2 % (3.0-9.0); NEUT # 5.2 10*3/uL (2.3-7.9); NEUT % 64.6 % (47.0-73.0); PLATELET COUNT AUTOMATED 235 10*3/uL (130-400); RED BLOOD COUNT 3.89 10*6/uL (4.10-5.10); RED CELL DISTRI WIDTH 13.3 % (0-14.5)
[2024-04-05 18:46] LABS: POTASSIUM 3.9 mmol/L (3.4-5.1); TOTAL PROTEIN 8.1 gm/dL (6.0-8.0)
[2024-04-05 18:51] LABS: VITAMIN D, 25-HYDROXY 53.9 ng/mL (30-100)
== END | disposition home or self-care (01) ==
LOC: ZRHCWE 17:33
PROVIDERS: ATTEND Nurse Practitioner Family
DX: E78.2 Mixed hyperlipidemia (principal); D50.9 Iron deficiency anemia, unspecified; R00.1 Bradycardia, unspecified; R79.9 Abnormal finding of blood chemistry, unspecified; E87.6 Hypokalemia; I12.9 Hypertensive chronic kidney disease with stage 1 through stage 4 chronic kidney disease, or unspecified chronic kidney disease; N18.9 Chronic kidney disease, unspecified; E55.9 Vitamin D deficiency, unspecified

== ENCOUNTER 2024-04-25 16:57 | Emergency (ER) | payer OTHER ==
[~2024-04-25] VITALS: Ht 157.4 cm; Wt 96.2 kg
[2024-04-25 17:17] VITALS: BP 115/71
[2024-04-25] MEDS ORDERED: SODIUM CHLORIDE 0.9% 1,000 ML IV ONE (17:40)
[2024-04-25 18:01] LABS: BASO % 0.3 % (0.0-1.0); EOS # 0.1 10*3/uL (0.0-0.4); EOS % 1.6 % (1.0-4.0); MEAN CELL VOLUME 90.9 fl (81.0-99.0); MEAN CORPUSCULAR HGB 29.6 pg (27.0-31.0); MEAN CORPUSCULAR HGB CONC 32.6 g/dl (33.0-37.0); MEAN PLATELET VOLUME 10.1 fl (9.6-12.3); MONO # 0.8 10*3/uL (0.1-1.0); MONO % 9.7 % (3.0-9.0); NEUT # 5.5 10*3/uL (2.3-7.9); NEUT % 63.4 % (47.0-73.0); PLATELET COUNT AUTOMATED 229 10*3/uL (130-400); RED BLOOD COUNT 3.85 10*6/uL (4.10-5.10); RED CELL DISTRI WIDTH 12.5 % (0-14.5); WHITE BLOOD COUNT 8.7 10*3/uL (4.8-10.8)
[2024-04-25] MEDS ORDERED: CENTRUM SILVER1 EAC2 PO (18:36)
[2024-04-25 18:49] LABS: POTASSIUM 3.5 mmol/L (3.4-5.1); TOTAL PROTEIN 7.5 gm/dL (6.0-8.0)
[2024-04-25 19:38] LABS: BILIRUBIN Negative (Negative); BLOOD Negative (Negative); CLARITY Clear (Clear); COLOR Yellow (Yellow); GLUCOSE Negative (Negative); KETONE Negative (Negative); LEUKO ESTERASE 1+ (Negative); NITRITE Negative (Negative); PH 5.5 (4.5-8.0); SPECIFIC GRAVITY 1.015 (1.001-1.030); UROBILINOGEN 0.2 E.U./dl (0.0-1.0)
[2024-04-25 19:48] LABS: BACTERIA 1+; MUCOUS 1+; RBC 0-2 rbc/hpf (0-2)
[2024-04-25] MEDS ORDERED: cefTRIAXone Sodium 1 GM/10 ML SYR IV ONE (20:40)
[2024-04-25] MEDS ORDERED: Meclizine Hydrochloride 12.5 MG TAB PO ONE (20:45)
[2024-04-25] MEDS ORDERED: OMNICEF300 MG PO (21:36)
== END 2024-04-25 22:05 | disposition home or self-care (01) ==
LOC: ED 16:57
PROVIDERS: Internal Medicine
DX: R42 Dizziness and giddiness (principal); R53.1 Weakness; I25.2 Old myocardial infarction; I25.10 Atherosclerotic heart disease of native coronary artery without angina pectoris; I12.9 Hypertensive chronic kidney disease with stage 1 through stage 4 chronic kidney disease, or unspecified chronic kidney disease; N18.9 Chronic kidney disease, unspecified; Z20.822 Contact with and (suspected) exposure to COVID-19; Z88.8 Allergy status to other drugs, medicaments and biological substances; Z88.0 Allergy status to penicillin; Z91.013 Allergy to seafood; Z91.041 Radiographic dye allergy status; Z90.49 Acquired absence of other specified parts of digestive tract; Z90.710 Acquired absence of both cervix and uterus; Z98.890 Other specified postprocedural states

== ENCOUNTER → 2024-10-18 | Outpatient (CLI) | payer OTHER ==
[~2024-10-18] MED LIST changes: +CENTRUM SILVER1 EAC2 PO; +OMNICEF300 MG PO
== END | disposition home or self-care (01) ==
LOC: LAB 14:37
PROVIDERS: ATTEND Psychiatry & Neurology Clinical Neurophysiology
DX: G31.84 Mild cognitive impairment of uncertain or unknown etiology (principal); E55.9 Vitamin D deficiency, unspecified